=== PATIENT | female | born 1985 | race Two or more races ===

== ENCOUNTER 2019-02-23 01:31 | Emergency (ER) | payer BC ==
[~2019-02-23] VITALS: Ht 162.6 cm; Wt 98.0 kg
[2019-02-23] MEDS ORDERED: PRENATA CHEWAB1 EACH (01:49)
== END 2019-02-23 11:30 | disposition home or self-care (01) ==
LOC: ER 01:31
DX: O12.03 Gestational edema, third trimester (principal); Z34.03 Encounter for supervision of normal first pregnancy, third trimester